=== PATIENT | female | born 1965 | race Two or more races ===

== ENCOUNTER 2024-05-14 04:34 | Emergency (ER) | payer MEDICAID, SELFPAY ==
[2024-05-14 04:34] VITALS: BMI 32.5
[2024-05-14 04:40] VITALS: BP 179/81; PULSE 81; RESP 18; TEMP 36.6; O2SAT 98
--- NOTE | 2024-05-14 04:54 | XR_ITS ---
Examination: CT brain head without contrast. 2-D sagittal coronal reconstructions Date and time of exam:May 14, 2024, 0509 hours Comparison 11/16/2012 INDICATIONS: Headaches with right-sided facial numbness beginning 5 days ago CTDI: vol (mGy):49.7 DLP: (mGycm):973 Technique: Multiple CT axial sections of the brain have been obtained, 5 mm slice thickness. Contrast has not been administered. 2-D sagittal, coronal reconstructions have been obtained Low dose protocols were performed. One or more of the following dose reduction techniques were used; automated exposure control, adjustment of the mA and/or KV according to patient size, use of iterative reconstruction technique. Findings: No significant ventricular enlargement. Intra-axial or extra-axial hemorrhage density is not seen. No mass effect or midline shift Basal cisterns are not remarkable. Fourth ventricle is midline. Cranial vault intact. Impression: Negative for acute hemorrhage, mass effect or midline shift As clinically warranted, brain MRI follow-up would best assess for demyelinating disease, acute ischemic change
--- NOTE | 2024-05-14 04:59 | PD.EDRME ---
Rapid Medical Screening Exam RME Arrival date/time: 05/14/24 04:34 Chief Complaint: Headache Time Seen by Provider: 05/14/24 04:35 Vital signs: Vital Signs Temperature 97.8 F 05/14/24 04:40 Pulse Rate 81 05/14/24 04:40 Respiratory Rate 18 05/14/24 04:40 Blood Pressure 179/81 H 05/14/24 04:40 Pulse Oximetry (%) 98 05/14/24 04:40 Oxygen Delivery Method Room Air 05/14/24 04:40 Vital signs reviewed by provider: Yes RME Narrative: 58-year-old female presents for evaluation of headache x 2 days. She endorses right facial numbness. Reports history of hypertension and diabetes.
[2024-05-14] MEDS: ACETAMINOPHEN w/COD 300-30 TABLET 2 TAB PO (05:40)
--- NOTE | 2024-05-14 05:40 | PRELIM_ITS ---
CT scan of the head without intravenous contrast (axial sections with sagittal and coronal reformats). May 14, 2024 0509 hours Clinical History: GUEVARA with right sided facial numbness Comparison: None Findings: There is no intracranial hemorrhage, extra-axial collection, mass, mass-effect or midline shift. There is good guevara-white differentiation. There is no CT evidence of acute large vascular territorial infarct. Ventricles are not enlarged or effaced. There is minimal basal ganglia calcification within the cerebral hemispheres. Visualized paranasal sinuses and tympanomastoid cavities are clear. The bony calvarium is intact. Impression: No intracranial hemorrhage, mass-effect or midline shift. No CT evidence of acute large vascular territorial infarct. Report Electronically Signed By: Cortez Benson 05/14/2024 5:39:52 AM [EST]
[2024-05-14] MEDS: IBUPROFEN TAB 400 MG TABLET 800 MG PO (05:41)
[2024-05-14 06:30] VITALS: BP 135/77; PULSE 66; RESP 17; TEMP 36.6; O2SAT 100
--- NOTE | 2024-05-14 06:49 | PD.EDADULT ---
ED General RME/HPI General Chief complaint: Headache Stated complaint: HEADACHE Time Seen by Provider: 05/14/24 04:35 Arrival date/time: 05/14/24 04:34 RME / HPI RME / HPI narrative: Patient is a 58 years old female with PMH of DM2, HTN, hyperlipidemia presented due to headache for 4 days. It started as a mild headache and got progressively worse and has never resolved since last Monday. She tried to use tylenol with no response. She endorses it is associated with right facial numbness and photosensitivity. She reports she has never had this kind of headache before lasting that long. She also reports associated chills but no fever. She denies any weakness, chest pain, abdominal pain, nausea, vomiting, rash, recent vaccination or travel. She denies drinking alcohol, smoking tobacco or using illicit drugs. Related Data Home Medications ?Medication ?Instructions ?Recorded ?Confirmed atenolol 50 mg tablet 50 mg PO BID High Blood Pressure 11/16/12 03/12/20 ##0 lisinopril 10 1 tab PO QDAY 08/27/18 03/12/20 mg-hydrochlorothiazide 12.5 mg tablet metformin 750 mg tablet,extended 750 mg PO QPM 08/27/18 03/12/20 release 24 hr amitriptyline 10 mg tablet 10 mg PO HS 12/31/19 03/12/20 atorvastatin 20 mg tablet 20 mg PO QPM 12/31/19 03/12/20 Previous Rx's ?Medication ?Instructions ?Recorded acetaminophen 500 mg capsule 1,000 mg (2 x 500 mg) PO Q4H PRN 03/28/19 pain #20 caps diazepam 10 mg tablet 10 mg PO BID PRN muscle spasm #6 05/14/24 tabs Allergies Allergy/AdvReac Type Severity Reaction Status Date / Time No Known Allergies Allergy Verified 05/14/24 04:37 Review of Systems Review of Systems Systems Reviewed: All systems reviewed, normal except as documented ED Exam Narrative Physical exam: Gen: Well-developed and well-nourished female in moderate distress. HEENT: NCAT, PERRLA, EOMI, MMM, anicteric conjunctivae, no nuchal rigidity, right occipital tenderness. CVS: normal S1 and S2. RRR. No M/R/G. Resp: CTA B/L. No rhonchi, rales, crackles or wheezing. Abd: soft, obese, non-tender, non-distended. BS+ in all 4 quadrants. MSK: Good ROM in BUE & BLE. No edema or rash. Neuro: CN II-XII grossly intact. Strength 5/5 in BUE & BLE. Alert and oriented x3. Course Course Course Narrative: 1230: performed blockage of right occipital nerve done with lidocaine/Epi. Quality Measures none Orders Category Date Time Status Bedside COVID-19 Antigen Test NOW Care 05/14/24 04:55 Completed Bedside Influenza A&B Antigen Test NOW Care 05/14/24 04:[address] head/brain wo con Stat Exams 05/14/24 04:54 Completed ACETAMINOPHEN w/COD 300-30 [Tylenol w/Cod #3] Med 05/14/24 05:19 Discontinued 2 tab PO X1 ONE Acetaminophen Tab [Tylenol ES Tab] Med 05/14/24 04:54 Discontinued 1,000 mg PO X1 ONE Diazepam [Valium] Med 05/14/24 07:18 Discontinued 10 mg PO X1 ONE DiphenhydrAMINE INJ [Benadryl Inj] Med 05/14/24 04:56 Discontinued 25 mg IVP X1 ONE Ibuprofen Tab [Motrin Tab] Med 05/14/24 05:19 Discontinued 800 mg PO X1 ONE Lidocaine 1% W/Epi 1:100K 20Ml [Xylocaine 1% w/Epi 1: Med 05/14/24 10:39 Discontinued 100K 20 ml] 30 ml INFL X1 ONE Metoclopramide [Reglan] Med 05/14/24 04:56 Discontinued 5 mg PO X1 ONE Sodium Chloride 0.9% 1000 ml [Ns] 1,000 ml Med 05/14/24 04:59 Discontinued IV 999 mls/hr Vital Signs Vital signs: Vital Signs Temperature 97.8 F 05/14/24 04:40 Pulse Rate 81 05/14/24 04:40 Respiratory Rate 18 05/14/24 04:40 Blood Pressure 179/81 H 05/14/24 04:40 Pulse Oximetry (%) 98 05/14/24 04:40 Oxygen Delivery Method Room Air 05/14/24 04:40 [facility] Patient data External records reviewed:: [facility] previous records Clinical information provided by:: patient Social determinants that could affect healthcare access:: none Patient has the following chronic illnesses:: DM2, HTN, hyperlipidemia How is presenting disease/condition affected by chronic disease/condition?: exacerbated by Evaluation data The following diagnostics were reviewed and interpreted by me:: radiology exam(s) Lab and/or radiology exams considered but not ordered:: MRI brain Interpretation Summary: Head CT ordered during RME process and did not show ICH or mass effect. Medications Medications considered but not ordered:: na Medication administrations:: Medication Administration History Discontinued Medications Acetaminophen (Acetaminophen 500 Mg Tablet) 1,000 mg PO X1 ONE Stop: 05/14/24 04:55 Last Admin: 05/14/24 05:50 Dose: Not Given Documented By: CVL Non-Admin Reason: Cancelled by Provider Acetaminophen/Codeine Phosphate (Acetaminophen W/Cod 300-30 Tablet) 2 tab PO X1 ONE Stop: 05/14/24 05:20 Last Admin: 05/14/24 05:40 Dose: 2 tab Documented By: EF Diazepam (Diazepam 5 Mg Tablet) 10 mg PO X1 ONE Stop: 05/14/24 07:19 Last Admin: 05/14/24 07:58 Dose: 10 mg Documented By: SM Diphenhydramine HCl (Diphenhydramine Inj 50 Mg/Ml Vial) 25 mg IVP X1 ONE Stop: 05/14/24 04:57 Last Admin: 05/14/24 05:50 Dose: Not Given Documented By: CVL Non-Admin Reason: Cancelled by Provider Sodium Chloride (Ns) 1,000 mls @ 999 mls/hr IV .Q1H1M ONE Stop: 05/14/24 05:59 Last Admin: 05/14/24 05:50 Dose: Not Given Documented By: CVL Non-Admin Reason: Cancelled by Provider Ibuprofen (Ibuprofen Tab 400 Mg Tablet) 800 mg PO X1 ONE Stop: 05/14/24 05:20 Last Admin: 05/14/24 05:41 Dose: 800 mg Documented By: EF Lidocaine/Epinephrine (Lidocaine 1% W/Epi 1:100k 20 Ml Vial) 30 ml INFL X1 ONE Stop: 05/14/24 10:40 Last Admin: 05/14/24 12:18 Dose: 30 ml Documented By: KM Comments: Administered by provider Metoclopramide HCl (Metoclopramide 5 Mg Tablet) 5 mg PO X1 ONE Stop: 05/14/24 04:57 Last Admin: 05/14/24 05:50 Dose: Not Given Documented By: CVL Non-Admin Reason: Cancelled by Provider as above Consultations Consultation(s) initiated? (list below): No Diagnosis Differential Diagnosis ED Complaint MDM: meningitis, migraine, CVA, ICH, occipital neuralgia Most likely diagnosis given after review of the tests above:: occipital neuralgia Admission Indicated Admission indicated?: not indicated Explain why admission is indicated or not indicated:: Occipital neuralgia s/p blockage, follow up with PCP outpatient. Admission Request Was there a request for admission?: No Disposition Plan Disposition Plan: Discharge Discharge Attestation Discharge Attestation: The patient and all family members were given an opportunity to ask questions and understood the discharge instructions. Discharge instructions specifically effects, indications for sooner follow up or return to the emergency department, and the expected course of current diagnosis. Patient condition: Stable Medical Decision Making MDM Narrative MDM Narrative: The patient is a 58-year-old female with a history of type 2 diabetes mellitus, hypertension, and hyperlipidemia, presenting with a progressively worsening headache over 4 days, unresponsive to acetaminophen. Associated symptoms included right facial numbness, photosensitivity, and chills, though she denied fever. Notably, she had not experienced headaches of this duration or severity before. Physical exam findings were remarkable for right occipital tenderness, but there were no signs of nuchal rigidity or neurological deficits. A head CT was unremarkable. A right occipital nerve block with lidocaine/epinephrine was performed, providing significant relief. Based on the clinical findings, she was diagnosed with occipital neuralgia. The patient is stable for discharge with recommendations to continue her current home medications and manage pain with diazepam 10 mg as needed (up to twice daily) and ibuprofen 400 mg (up to three times daily) for 3 days. She is also advised to apply an ice pack to the affected area twice daily for 2 days. Clear instructions were given to return to the emergency department if symptoms recur or worsen. Follow-up with her primary care provider within 1 week is recommended for ongoing evaluation and management. The patient expressed understanding of the plan and agreed to comply with the discharge instructions. Differential Diagnosis Differential Diagnosis: meningitis, migraine, CVA, ICH, occipital neuralgia Discharge Plan Plan Patient Disposition: HOME (Self Care) Patient condition on transfer: Stable Prescriptions/Referrals Prescriptions/Med Rec: New diazepam 10 mg tablet 10 mg PO BID PRN (Reason: muscle spasm) Qty: 6 0RF No Action atenolol 50 MG tablet 50 mg PO BID Qty: 0 atorvastatin 20 mg Tablet 20 mg PO QPM amitriptyline 10 mg Tablet 10 mg PO HS lisinopril-hydrochlorothiazide 10-12.5 mg Tablet 1 tab PO QDAY metformin 750 mg Tablet Extended Release 24 Hr 750 mg PO QPM acetaminophen 500 mg capsule 1,000 mg PO Q4H PRN (Reason: pain) Qty: 20 0RF Referrals: Jhoana Reyes FNP [Primary Care Provider] - In 1 week Problem List Clinical Impression: Occipital neuralgia of right side Patient/Caregiver Discharge Instructions Additional Instructions: Continue home medications as prescribed. Take diazepam 10 mg as needed up to 2 times a day for pain for 3 days. Take ibuprofen 400 mg up to 3 times a day for pain for 3 days. Apply ice pack for affected area 2 times a day for 2 days. Return to the ED if symptoms recur or worsen. Follow up with PCP within 1 week. Print Language: Puerto Rican Stand Alone Forms: [employer] Award Info., Work/School Release, Patient Portal Info Letter
[2024-05-14] MEDS: DIAZEPAM 5 MG TABLET 10 MG PO (07:58)
[2024-05-14 08:00] VITALS: BP 135/77; PULSE 71; RESP 14; O2SAT 100
[2024-05-14 11:44] VITALS: BP 137/85; PULSE 68; O2SAT 100
[2024-05-14] MEDS: LIDOCAINE 1% W/EPI 1:100K 20 ML VIAL 30 ML INFL (12:18)
--- NOTE | 2024-05-14 12:28 | PC.NURSE ---
ASSESSED PT TO AMBULATE TO THE RESTROOM. PATIENT TOLERAED WELL
--- NOTE | 2024-05-14 12:48 | PC.NURSE ---
Dr. Beth at bedside.
[2024-05-14 13:29] VITALS: BP 135/69; PULSE 72; RESP 16; O2SAT 100
== END 2024-05-14 13:31 | disposition home or self-care (01) ==
PROVIDERS: Emergency Provider Emergency Medicine; PCP Nurse Practitioner Family
DX: M54.81 Occipital neuralgia (principal); E11.9 Type 2 diabetes mellitus without complications; E78.5 Hyperlipidemia, unspecified; I10 Essential (primary) hypertension
CPT/HCPCS: 70450; 87400; 87811; 99284; J3490; A9270

== ENCOUNTER 2024-07-31 03:14 | Emergency (ER) | payer MEDICAID, SELFPAY ==
[2024-07-31 03:16] VITALS: BP 135/88; PULSE 76; RESP 17; TEMP 36.8; O2SAT 99; BMI 33.7
--- NOTE | 2024-07-31 03:46 | EDNOTE_ITS ---
<Statement entered by Kaylen Roberts MD - 07/31/24 18:32> As co-signing physician, I was present and available for consult prn. I concur with the plan and care as documented by the midlevel provider. ED Headache RME/HPI General Chief Complaint: Headache Stated Complaint: GUEVARA, THROAT PAIN X 6 DAYS Time Seen by Provider: 07/31/24 03:32 Arrival date/time: 07/31/24 03:14 59F with history of HTN and DM presents to ED with 1 week of R-sided GUEVARA and sore throat. Patient denies cough. Limitations: no limitations Related Data Home Medications ?Medication ?Instructions ?Recorded ?Confirmed atenolol 50 mg tablet 50 mg PO BID High Blood Pres sure 11/16/12 03/12/20 ##0 lisinopril 10 1 tab PO QDAY 08/27/1803/12 mg-hydrochlorothiazide 12.5 mg tablet metformin 750 mg tablet,extended 750 mg PO QPM 9 03/12/20 release 24 hr amitriptyline 10 mg tablet 10 mg PO HS 12/31/19 atorvastatin 20 mg tablet 20 mg PO QPM 12/31/19 Previous Rx's ?Medication ?Instructions ?Recorded acetaminophen 500 mg capsule 1,000 mg (2 x 500 mg) PO Q4H PRN 03/28/19 pain #20 caps diazepam 10 mg tablet 10 mg PO BID PRN muscle spas m #6 05/14/24 tabs doxycycline hyclate 100 mg tablet 100 mg PO BID 10 day s #20 tabs 07/31/24 Allergies Allergy/AdvReac Type Severity Reaction Status Date / Time No Known Allergies Allergy Verified 05/14/24 04:37 Review of Systems Review of Systems Systems Reviewed: All systems reviewed, normal except as documented Constitutional Constitutional: Reports system reviewed and no additional complaints, except as documented, Reports as per HPI, Denies fever(s) and Reports headache(s) ENT Ears, Nose, Mouth, and Throat: Reports as per HPI, Denies disequilibrium, Repor ts headache(s) and Reports sore throat Cardiovascular Cardiovascular: Reports system reviewed and no additional complaints, except as documented, Denies chest pain and Denies dyspnea Respiratory Respiratory: Reports system reviewed and no additional complaints, except as documented, Denies cough and Denies dyspnea Gastrointestinal Gastrointestinal: Reports system reviewed and no additional complaints, except as documented, Denies abdominal pain, Denies nausea and Denies vomiting Neurologic Neurologic: Reports system reviewed and no additional complaints, except as documented, Denies confusion, Denies disequilibrium and Reports headache(s) Psychiatric Psychiatric: Denies confusion Past Medical History Past Medical History NEUROLOGIC: Negative Neurological Disorders, Cerebrovascular Accident, Transient Ischemic Attacks (TIA), Dementia, Alzheimer's Disease, Parkinson's Disease, Brain Tumor, Meningitis, Seizures, Epilepsy, Multiple Sclerosis, Cerebral Palsy, Amyotrophic Lateral Sclerosis (ALS/Ysabel Gehrig's), Guillain-Uneeda Syndrome, Spina Bifida, Paralysis, Peripheral Neuropathy, Torres's Palsy, Subdural Hematoma, Migraine, Head Trauma, Spinal Cord Injury or Traumatic Brain Injury CARDIAC: Positive Cardiac Disorders, Hypercholesterolemia, Edema (mild bilateral leg swelling when working.), Hypertension and Varicose Veins; Negative Myocardial Infarction, Cardiac Arrhythmia, Atrial Fibrillation, Angina, Heart Murmur, Coronary Artery Disease, Atherosclerotic Heart Disease, Peripheral Vascular Disease, Aneurysm, Congestive Heart Failure, Congenital Heart Disease, Valvular Heart Disease, Rheumatic Fever, Cardiomyopathy, Pericarditis, Cellulitis, Deep Vein Thrombosis or Hypotension RESPIRATORY: Negative Chronic Obstructive Pulmonary Disease (COPD), Asthma, Bronchitis, Pneumonia, Pulmonary Fibrosis, Cystic Fibrosis, Tuberculosis, Pulmonary Embolism, Pulmonary Edema or Sleep Apnea GASTROINTESTINAL: Positive Gastrointestinal Disorders and Obesity; Negative Hepatitis, Cirrhosis, Pancreatitis, Celiac Disease, Gall Bladder Disease, Gastrointestinal Bleed, Esophageal Varices, Matson's Esophagus, Colitis, Ulcerative Colitis, Diverticulitis, Diverticulosis, Ulcer, Colorectal Cancer, Irritable Bowel, Crohn's Disease, Obstructive Bowel, Hiatal Hernia, Hemorrhoids or Gastroesophageal Reflux Disease GENITOURINARY: Positive Genitourinary Disorders (MILD STRESS INCONTINENCE); Negative Renal Disease, Kidney Stones, Polycystic Kidney Disease, Neurogenic Bladder, Inguinal Hernia or Dialysis REPRODUCTIVE: Positive Previous Pregnancies (4); Negative Endometriosis, Genital Herpes, Gonorrhea, Pelvic Inflammatory Disease, Syphilis or Uterine Prolapse MUSCULOSKELETAL: Positive Musculoskeletal Disorders and Arthritis; Negative Muscular Dystrophy, Myasthenia Gravis, Marfan's Syndrome, Bone Cancer, Rheumatoid Arthritis, Osteoporosis, Degenerative Disk Disease, Gout, Scoliosis, Fibromyalgia, Fractures, Degenerative Joint Disease, Osteomyelitis or Poliovirus ENT: Negative Cataracts, Glaucoma, Blind, Retinal Detachment, Macular Degeneration, Ear Infection, Deafness, Head Trauma or Eye Prosthesis ENDOCRINE: Positive Endocrine Disorders and Diabetes Mellitus Type 2; Negative Diabetes Mellitus Type 1, Hypoglycemia, Gissell's Syndrome, Manville's Disease, Hyperthyroidism, Hypothyroidism, Parathyroid Disease, Pituitary Disease, Systemic Lupus Erythematosus, Syndrome of Inappropriate Antidiuretic Hormone (SIADH), Adrenal Disease or Graves' Disease HEMATOLOGIC: Negative Blood Disorders, Anemia, Leukemia, Hemophilia, Thalassemia, Sickle Cell Disease or Clotting Problems PSYCHO/SOCIAL: Negative Psychiatric Problems, Schizophrenia, Recreational Drug Use, Bipolar Disorder, Depression, Anxiety, Behavior Problems, Self-Mutilation, Attention Deficit Disorder, Attention Deficit Hyperactivity Disorder, Depression, Post Traumatic Stress Disorder or Eating Disorder OTHER HISTORY: Positive Mumps; Negative Hospitalization, Autoimmune Disease, Autism, Shingles, Falls, Blood Transfusions, Blood Transfusion Reaction, Anesthesia Reactions, Organ Transplant, MRSA, Cancer, Cervical Cancer, Colorectal Cancer, Lung Cancer or Ovarian Cancer Family History FAMILY HISTORY: Positive Family Cardiac Disorders (mother/2 brothers have high blood pressure.) and Family Cancer (FATHER OF STOMACH CA); Negative Family Psychiatric Problems, Family Respiratory Disorders, Family Gastrointestinal Problems, Family Surgery or Family Anesthesia Reaction Surgical History SURGICAL: Positive Arthroscopy; Negative Cardiac Surgery, Open Heart Surgery, Coronary Artery Bypass Graft, Valve Replacement, Vascular Surgery, Coronary Stent, Cardiac Catheterization, Pacemaker, Angiogram, Auto Implanted Cardiovert Defib, Carotid Endarterectomy, Endocrine Surgery, Thyroidectomy, Ear Surgery, Tympanostomy Tube, Eye Surgery, Nose Surgery, Oral Surgery, Tonsillectomy, Cochlear Implant, Corneal Transplant, Abdominal Surgery, Tracheostomy, Joint Replacement, Neurologic Surgery, Mastectomy, Lumpectomy, Hysterectomy, Tubal Ligation, Section, Vasectomy or Organ Transplant Social History SMOKING STATUS: Never smoker ED Exam General Limitations: Present no limitations General appearance: Present alert and in no apparent distress Head Head exam: Present atraumatic Eye Eye exam: Present normal appearance, PERRL and EOMI ENT ENT exam: Present mucous membranes moist Expanded ENT Exam TM/Canal exam: Right TM: effusion Nose exam: Present sinus tenderness (R-sided) Neck Neck exam: Present normal inspection, full ROM and trachea midline Chest Chest inspection: Present normal inspection and symmetric chest wall rise Respiratory Respiratory exam: Present normal lung sounds bilaterally Cardiovascular Cardiovascular exam: Present regular rate, normal rhythm and normal heart sounds Abdominal Exam Abdominal exam: Present soft and normal bowel sounds Extremities Exam Extremities exam: Present normal inspection and full ROM Back Exam Back exam: Present normal inspection and full ROM Neurological Exam Neurological exam: Present alert, oriented X3 and CN II-XII intact Psychiatric Psychiatric exam: Present normal affect and normal mood Skin Skin exam: Present warm, dry, intact and normal color Course Quality Measures none Orders Category Date Time Status Doxycycline [Vibramycin] Med 07/31/24 03:33 Discontinued 100 mg PO X1 ONE Naproxen [Naprosyn] Med 07/31/24 03:33 Discontinued 500 mg PO X1 ONE Vital Signs Vital signs: Vital Signs Temperature 98.2 F 07/31/24 03:16 Pulse Rate 76 07/31/24 03:16 Respiratory Rate 17 07/31/24 03:16 Blood Pressure 135/88 H 07/31/24 03:16 Pulse Oximetry (%) 99 07/31/24 03:16 Oxygen Delivery Method Room Air 07/31/24 03:16 O2 at 99% on RA and WNLs Headache MDM Narrative MDM Narrative:: 59F with history of HTN and DM presents to ED with 1 week of R-sided GUEVARA and sore throat. Patient denies cough. Physical exam reveals normal pupil response and EOM. CN II-XII grossly intact. Gait normal. Speech normal. Mild effusion in R ear. R-sided sinus tenderness. Patient is afebrile, calm, and alert. Likely sinusitis. Patient data External records reviewed:: [facility] previous records Clinical information provided by:: patient Social determinants that could affect healthcare access:: none Patient has the following chronic illnesses:: DM and HTN How is presenting disease/condition affected by chronic disease/condition?: exacerbated by Evaluation data The following diagnostics were reviewed and interpreted by me:: other (specify) (none) Lab and/or radiology exams considered but not ordered:: not ordered Interpretation Summary: n/a Medications / Prescriptions Medications or Prescriptions considered but not ordered:: ordered Medication administrations:: Medication Administration History Discontinued Medications Doxycycline Hyclate (Doxycycline 100 Mg Tablet) 100 mg PO X1 ONE Stop: 07/31/24 03:34 Naproxen (Naproxen 250 Mg Tablet) 500 mg PO X1 ONE Stop: 07/31/24 03:34 above Consultations Consultation(s) initiated? (list below): No Diagnosis Differential diagnosis headache: migraine, tension headache, subarachnoid hemorrhage, headache, meningitis, sinusitis and postconcussion syndrome Most likely diagnosis given after review of the tests above:: sinusitis Admission Indicated Admission indicated?: not indicated Admission Request Was there a request for admission?: No Disposition Plan Disposition Plan: Discharge Discharge Attestation Discharge Attestation: The patient and all family members were given an opportunity to ask questions and understood the discharge instructions. Discharge instructions specifically effects, indications for sooner follow up or return to the emergency department, and the expected course of current diagnosis. Patient condition: Stable Discharge Plan Plan Patient Disposition: HOME (Self Care) Discharge Disposition comment: Stable Prescriptions/Referrals Prescriptions/Med Rec: New doxycycline hyclate 100 mg tablet 100 mg PO BID 10 Days Qty: 20 0RF No Action atenolol 50 MG tablet 50 mg PO BID Qty: 0 atorvastatin 20 mg Tablet 20 mg PO QPM amitriptyline 10 mg Tablet 10 mg PO HS lisinopril-hydrochlorothiazide 10-12.5 mg Tablet 1 tab PO QDAY metformin 750 mg Tablet Extended Release 24 Hr 750 mg PO QPM acetaminophen 500 mg capsule 1,000 mg PO Q4H PRN (Reason: pain) Qty: 20 0RF diazepam 10 mg tablet 10 mg PO BID PRN (Reason: muscle spasm) Qty: 6 0RF Problem List Clinical Impression: Sinusitis Patient/Caregiver Discharge Instructions Education Materials: Causes of Sinusitis, ED Sinusitis (Antibiotic Treatment) Additional Instructions: Please follow-up with PCP within 24-48 hours and return immediately if symptoms worsen. Print Language: Arabic Stand Alone Forms: Patient Portal Info Letter PA/DOPE MIXER Supervising Physician JHONNY/WILLIAMS Supervising Physician: Dr. Roberts
[2024-07-31] MEDS: DOXYCYCLINE 100 MG TABLET PO (03:51)
[2024-07-31] MEDS: NAPROXEN 250 MG TABLET 500 MG PO (03:51)
== END 2024-07-31 04:09 | disposition home or self-care (01) ==
LOC: SERX 03:56
PROVIDERS: Emergency Provider Emergency Medicine; PCP Nurse Practitioner Family
DX: J32.9 Chronic sinusitis, unspecified (principal)
CPT/HCPCS: 99282; A9270

== ENCOUNTER 2024-11-05 16:32 | Emergency (ER) | payer MEDICAID, SELFPAY ==
[2024-11-05 16:32] VITALS: BMI 33.9
--- NOTE | 2024-11-05 16:57 | XR_ITS ---
Examination: Foot, right, 3 views Technique: AP, oblique, lateral views foot, 3 views Date and time of exam: November 05, 2024 1705 hrs. Indications: Injury to the foot today with fifth digit pain. Findings: Acute fractures involving the proximal mid and distal portion proximal phalanx fifth digit with significant angulation of the distal portion of this phalanx No foreign body No mars dislocation Impression: Acute fractures proximal phalanx right fifth digit
--- NOTE | 2024-11-05 16:59 | PD.EDRME ---
Rapid Medical Screening Exam RME Arrival date/time: 11/05/24 16:32 59-year-old female with a history of hyperlipidemia, hypertension presents to the emergency room with a chief complaint of stabbing right fifth digit and dislocating 1 hour ago. I have greeted and performed a focused initial assessment of this patient. A comprehensive ED assessment and evaluation of the patient, analysis of all test results, and completion of the medical decision making process will be conducted by additional ED providers. Chief Complaint: Ankle/Foot Injury Vital signs reviewed by provider: Yes
[2024-11-05 17:00] VITALS: BP 118/75; PULSE 68; RESP 18; TEMP 37.1; O2SAT 98
[2024-11-05] MEDS: KETOROLAC INJ 60 MG/2 ML VIAL 30 MG IM (17:06)
--- NOTE | 2024-11-05 20:16 | PD.EDANKLE ---
Lower Extremity Injury RME/HPI General Chief Complaint: Ankle/Foot Injury Stated Complaint: RIGHT FOOT PAIN X1 DAY Time Seen by Provider: 11/05/24 20:17 Arrival date/time: 11/05/24 16:32 RME / HPI RME / HPI Narrative: 11/05/24 16:32 59-year-old female with a history of hyperlipidemia, hypertension presents to the emergency room with a chief complaint of stabbing right fifth digit and dislocating 1 hour ago. I have greeted and performed a focused initial assessment of this patient. A comprehensive ED assessment and evaluation of the patient, analysis of all test results, and completion of the medical decision making process will be conducted by additional ED providers. Dr. Dolan?s Main ED Evaluation: 59yo female presents to the ED for a chief complaint of right pinky toe pain. Patient hit her toe against the corner of a sofa last night and has since had worsening toe pain. Denies any other injuries. NKA. Related Data Home Medications ?Medication ?Instructions ?Recorded ?Confirmed atenolol 50 mg tablet 50 mg PO BID High Blood Pressure 11/16/12 03/12/20 ##0 lisinopril 10 1 tab PO QDAY 08/27/18 03/12/20 mg-hydrochlorothiazide 12.5 mg tablet metformin 750 mg tablet,extended 750 mg PO QPM 08/27/18 03/12/20 release 24 hr amitriptyline 10 mg tablet 10 mg PO HS 12/31/19 03/12/20 atorvastatin 20 mg tablet 20 mg PO QPM 12/31/19 03/12/20 Previous Rx's ?Medication ?Instructions ?Recorded acetaminophen 500 mg capsule 1,000 mg (2 x 500 mg) PO Q4H PRN 03/28/19 pain #20 caps diazepam 10 mg tablet 10 mg PO BID PRN muscle spasm #6 05/14/24 tabs hydrocodone 10 mg-acetaminophen 1 tab PO Q6H PRN pain #10 tabs 11/05/24 325 mg tablet Allergies Allergy/AdvReac Type Severity Reaction Status Date / Time No Known Allergies Allergy Verified 11/05/24 16:34 Review of Systems Review of Systems Systems Reviewed: All systems reviewed, normal except as documented Past Medical History Past Medical History NEUROLOGIC: Negative Neurological Disorders, Cerebrovascular Accident, Transient Ischemic Attacks (TIA), Dementia, Alzheimer's Disease, Parkinson's Disease, Brain Tumor, Meningitis, Seizures, Epilepsy, Multiple Sclerosis, Cerebral Palsy, Amyotrophic Lateral Sclerosis (ALS/Ysabel Gehrig's), Guillain-Rochester Syndrome, Spina Bifida, Paralysis, Peripheral Neuropathy, Torres's Palsy, Subdural Hematoma, Migraine, Head Trauma, Spinal Cord Injury or Traumatic Brain Injury CARDIAC: Positive Cardiac Disorders, Hypercholesterolemia, Edema (mild bilateral leg swelling when working.), Hypertension and Varicose Veins; Negative Myocardial Infarction, Cardiac Arrhythmia, Atrial Fibrillation, Angina, Heart Murmur, Coronary Artery Disease, Atherosclerotic Heart Disease, Peripheral Vascular Disease, Aneurysm, Congestive Heart Failure, Congenital Heart Disease, Valvular Heart Disease, Rheumatic Fever, Cardiomyopathy, Pericarditis, Cellulitis, Deep Vein Thrombosis or Hypotension RESPIRATORY: Negative Chronic Obstructive Pulmonary Disease (COPD), Asthma, Bronchitis, Pneumonia, Pulmonary Fibrosis, Cystic Fibrosis, Tuberculosis, Pulmonary Embolism, Pulmonary Edema or Sleep Apnea GASTROINTESTINAL: Positive Gastrointestinal Disorders and Obesity; Negative Hepatitis, Cirrhosis, Pancreatitis, Celiac Disease, Gall Bladder Disease, Gastrointestinal Bleed, Esophageal Varices, Matson's Esophagus, Colitis, Ulcerative Colitis, Diverticulitis, Diverticulosis, Ulcer, Colorectal Cancer, Irritable Bowel, Crohn's Disease, Obstructive Bowel, Hiatal Hernia, Hemorrhoids or Gastroesophageal Reflux Disease GENITOURINARY: Positive Genitourinary Disorders (MILD STRESS INCONTINENCE); Negative Renal Disease, Kidney Stones, Polycystic Kidney Disease, Neurogenic Bladder, Inguinal Hernia or Dialysis REPRODUCTIVE: Positive Previous Pregnancies (4); Negative Endometriosis, Genital Herpes, Gonorrhea, Pelvic Inflammatory Disease, Syphilis or Uterine Prolapse MUSCULOSKELETAL: Positive Musculoskeletal Disorders and Arthritis; Negative Muscular Dystrophy, Myasthenia Gravis, Marfan's Syndrome, Bone Cancer, Rheumatoid Arthritis, Osteoporosis, Degenerative Disk Disease, Gout, Scoliosis, Fibromyalgia, Fractures, Degenerative Joint Disease, Osteomyelitis or Poliovirus ENT: Negative Cataracts, Glaucoma, Blind, Retinal Detachment, Macular Degeneration, Ear Infection, Deafness, Head Trauma or Eye Prosthesis ENDOCRINE: Positive Endocrine Disorders and Diabetes Mellitus Type 2; Negative Diabetes Mellitus Type 1, Hypoglycemia, Fountain's Syndrome, Mifflin's Disease, Hyperthyroidism, Hypothyroidism, Parathyroid Disease, Pituitary Disease, Systemic Lupus Erythematosus, Syndrome of Inappropriate Antidiuretic Hormone (SIADH), Adrenal Disease or Graves' Disease HEMATOLOGIC: Negative Blood Disorders, Anemia, Leukemia, Hemophilia, Thalassemia, Sickle Cell Disease or Clotting Problems PSYCHO/SOCIAL: Negative Psychiatric Problems, Schizophrenia, Recreational Drug Use, Bipolar Disorder, Depression, Anxiety, Behavior Problems, Self-Mutilation, Attention Deficit Disorder, Attention Deficit Hyperactivity Disorder, Depression, Post Traumatic Stress Disorder or Eating Disorder OTHER HISTORY: Positive Mumps; Negative Hospitalization, Autoimmune Disease, Autism, Shingles, Falls, Blood Transfusions, Blood Transfusion Reaction, Anesthesia Reactions, Organ Transplant, MRSA, Cancer, Cervical Cancer, Colorectal Cancer, Lung Cancer or Ovarian Cancer Family History FAMILY HISTORY: Positive Family Cardiac Disorders (mother/2 brothers have high blood pressure.) and Family Cancer (FATHER OF STOMACH CA); Negative Family Psychiatric Problems, Family Respiratory Disorders, Family Gastrointestinal Problems, Family Surgery or Family Anesthesia Reaction Surgical History SURGICAL: Positive Arthroscopy; Negative Cardiac Surgery, Open Heart Surgery, Coronary Artery Bypass Graft, Valve Replacement, Vascular Surgery, Coronary Stent, Cardiac Catheterization, Pacemaker, Angiogram, Auto Implanted Cardiovert Defib, Carotid Endarterectomy, Endocrine Surgery, Thyroidectomy, Ear Surgery, Tympanostomy Tube, Eye Surgery, Nose Surgery, Oral Surgery, Tonsillectomy, Cochlear Implant, Corneal Transplant, Abdominal Surgery, Tracheostomy, Joint Replacement, Neurologic Surgery, Mastectomy, Lumpectomy, Hysterectomy, Tubal Ligation, Section, Vasectomy or Organ Transplant Social History SMOKING STATUS: Never smoker ED Exam Narrative Physical exam: Right foot shows the fifth toe to be abducted at the level of the proximal interphalangeal joint. There is contusion around the base of the toe. Sensation is intact. Course Quality Measures none Orders Category Date Time Status XR foot comp RT min 3V Stat Exams 11/05/24 16:57 Completed Ketorolac Inj [Toradol Inj] Med 11/05/24 16:57 Discontinued 30 mg IM X1 ONE Lidocaine 1% 20 ml [Xylocaine 1% 20 ML] Med 11/05/24 20:27 Discontinued 10 ml INFL X1 ONE Vital Signs Vital signs: Vital Signs Temperature 98.7 F 11/05/24 17:00 Pulse Rate 68 11/05/24 17:00 Respiratory Rate 18 11/05/24 17:00 Blood Pressure 118/75 11/05/24 17:00 Pulse Oximetry (%) 98 11/05/24 17:00 Oxygen Delivery Method Room Air 11/05/24 17:00 Extremity Injury, Lower MDM Narrative MDM Narrative:: Scribe Attestation: 11/05/24 - I, Adela John, am scribing for and in the presence of Dr. Dolan. X-ray of the right foot shows a fracture of the distal portion of the proximal phalanx of the right fifth toe with lateral angulation. Procedure note: Digital block to the right fifth toe was performed with 1% lidocaine without epinephrine. Using medial traction to the distal end of the proximal phalanx the fracture fragment was realigned with a palpable and audible click. The toe was then straight and taped to the fourth toe next to it and a leora taped fashion. Patient was given a rigid sole shoe after the procedure. She is to use crutches for ambulation. She will have to stay off that right foot for the next 4 to 6 weeks. She may follow-up with her primary care physician. Patient data External records reviewed:: [facility] previous records (Per chart review, patient has no relevant previous ED visits.) Clinical information provided by:: patient Social determinants that could affect healthcare access:: none Patient has the following chronic illnesses:: DMII, HTN, HLD How is presenting disease/condition affected by chronic disease/condition?: uneffected by Evaluation data The following diagnostics were reviewed and interpreted by me:: radiology exam(s) Lab and/or radiology exams considered but not ordered:: none Interpretation Summary: [facility] Report Signed Patient: SHRUTI KIRK Record#: [id number] Birthdate: 1965 Age/Sex: 59 / F Location: [facility] Attending Dr: Ordering Physician: Joe Muñiz Date of Service: 11/05/24 Procedure(s): XR foot comp RT min 3V Accession Number(s): [id number] cc: Joe Muñiz; Rupert Soares MD; Jhoana Reyes~ Examination: Foot, right, 3 views Technique: AP, oblique, lateral views foot, 3 views Date and time of exam: November 05, 2024 1705 hrs. Indications: Injury to the foot today with fifth digit pain. Findings: Acute fractures involving the proximal mid and distal portion proximal phalanx fifth digit with significant angulation of the distal portion of this phalanx No foreign body No mars dislocation Impression: Acute fractures proximal phalanx right fifth digit Dictated By: Rupert Soares MD Signed By: <Electronically signed by Rupert Soares MD in OV> 11/05/24 1730 Medications / Prescriptions Medications or Prescriptions considered but not ordered:: none Medication administrations:: Medication Administration History Discontinued Medications Ketorolac Tromethamine (Ketorolac Inj 60 Mg/2 Ml Vial) 30 mg IM X1 ONE Stop: 11/05/24 16:58 Last Admin: 11/05/24 17:06 Dose: 30 mg Documented By: Lidocaine HCl (Lidocaine Hcl 1% 20 Ml Vial) 10 ml INFL X1 ONE Stop: 11/05/24 20:28 Last Admin: 11/05/24 20:52 Dose: 10 ml Documented By: BD Comments: given to provider see above Consultations Consultation(s) initiated? (list below): No Diagnosis Extremity Injury, Lower Differential Diagnosis: other (See MDM.) Most likely diagnosis given after review of the tests above:: see clinical impression below Admission Indicated Admission indicated?: not indicated Admission Request Was there a request for admission?: No Disposition Plan Disposition Plan: Discharge Discharge Attestation Discharge Attestation: The patient and all family members were given an opportunity to ask questions and understood the discharge instructions. Discharge instructions specifically effects, indications for sooner follow up or return to the emergency department, and the expected course of current diagnosis. Patient condition: Stable Discharge Plan Plan Patient Disposition: HOME (Self Care) Prescriptions/Referrals Prescriptions/Med Rec: New hydrocodone-acetaminophen 10-325 mg tablet 1 tab PO Q6H MDD 4 PRN (Reason: pain) Qty: 10 0RF No Action atenolol 50 MG tablet 50 mg PO BID Qty: 0 atorvastatin 20 mg Tablet 20 mg PO QPM amitriptyline 10 mg Tablet 10 mg PO HS lisinopril-hydrochlorothiazide 10-12.5 mg Tablet 1 tab PO QDAY metformin 750 mg Tablet Extended Release 24 Hr 750 mg PO QPM acetaminophen 500 mg capsule 1,000 mg PO Q4H PRN (Reason: pain) Qty: 20 0RF diazepam 10 mg tablet 10 mg PO BID PRN (Reason: muscle spasm) Qty: 6 0RF Referrals: Jhoana Reyes FNP [Primary Care Provider] - In 1 week Problem List Clinical Impression: Closed fracture of proximal phalanx of toe of right foot Patient/Caregiver Discharge Instructions Education Materials: ED Fracture, Toe, Closed Additional Instructions: Use the crutches for ambulation for the next 4 weeks. Keep the right small toe leora taped to the toe next to it for the next 4 weeks. Print Language: Japanese Stand Alone Forms: [facility] Award Info., Patient Portal Info Letter
[2024-11-05 20:36] VITALS: BP 154/84; PULSE 71; RESP 18; TEMP 36.6; O2SAT 98
[2024-11-05] MEDS: LIDOCAINE HCL 1% 20 ML VIAL 10 ML INFL (20:52)
[2024-11-05 21:30] VITALS: BP 126/81; PULSE 68; RESP 19; TEMP 36.7; O2SAT 96
== END 2024-11-05 21:53 | disposition home or self-care (01) ==
PROVIDERS: Emergency Provider Emergency Medicine; PCP Nurse Practitioner Family
DX: S92.511A Displaced fracture of proximal phalanx of right lesser toe(s), initial encounter for closed fracture (principal); W22.8XXA Striking against or struck by other objects, initial encounter
CPT/HCPCS: 73630; 96372; 99284; J1885; J3490